=== PATIENT | male | born 1960 | race Caucasian/White ===

== ENCOUNTER 2018-09-17 16:07 | Inpatient (IN) ==
--- NOTE | 2018-09-17 16:18 | Emergency Department Note ---
Disposition Clinical Impression: TIA (transient ischemic attack), Dysarthria Disposition: Admitted As Inpatient Condition: Undetermined Time of Disposition: 17:39 Neuro HPI - General Chief Complaint: ED Neuro Symptoms/Deficit Stated Complaint: neuro symptoms Time Seen by Provider: 09/17/18 16:13 Source: patient, family, EMS Mode of arrival: EMS Limitations: no limitations Nursing Notes Reviewed: Yes Vital Signs Reviewed: Yes - History of Present Illness HPI Narrative: 58 yo male with PMHx of subdural hematoma requiring cranial barbels presents to the emergency department with acute onset slurring of his speech and difficulty with word finding. Patient was here today and had an MRI and then went to lunch with his mother. Approximately 30 minutes prior to arrival he notes that he was having problems finding some words and had more slurred speech than normal. His mother also noted that he has had increased difficulty in walking today. Patient has a history of atrial fibrillation but is not on Coumadin any longer because of the history of the subdural hematomas. He has not fallen and hit his head recently. He was complaining of not feeling well this morning according to his mother. - Related Data Home Medications: Home Medications Medication Instructions Recorded Confirmed Aspirin 325 mg PO DAILY 09/17/18 09/17/18 Atorvastatin [Lipitor] 80 mg PO HS 09/17/18 09/17/18 Carvedilol [Coreg] 12.5 mg PO BIDWM 09/17/18 09/17/18 Cholecalciferol (D-3) [Vitamin D] 1,000 unit PO DAILY 09/17/18 09/17/18 Cyanocobalamin (Vitamin B-12) 1,000 mcg SL DAILY 09/17/18 09/17/18 [Vitamin B-12] Dulaglutide [Trulicity] 1.5 mg SQ FR 09/17/18 09/17/18 Glimepiride [Amaryl] 4 mg PO QAM 09/17/18 09/17/18 Insulin Glargine,Hum.rec.anlog 30 unit SQ HS 09/17/18 09/17/18 [Basaglar Kwikpen U-100] Losartan [Cozaar] 100 mg PO DAILY 09/17/18 09/17/18 Magnesium Oxide [Magnesium] 400 mg PO DAILY 09/17/18 09/17/18 Metformin HCl 1,700 mg PO QAM 09/17/18 09/17/18 Metformin HCl 850 mg PO QPM 09/17/18 09/17/18 Omeprazole [PriLOSEC] 20 mg PO DAILY 09/17/18 09/17/18 Sertraline [Zoloft] 200 mg PO DAILY 09/17/18 09/17/18 amLODIPine [Norvasc] 10 mg PO DAILY 09/17/18 09/17/18 Allergies/Adverse Reactions: Allergies Allergy/AdvReac Type Severity Reaction Status Date / Time lisinopril AdvReac Cough Verified 09/17/18 16:20 All systems ED: reviewed and negative except as stated. Review of Systems: As Per HPI Constitutional: Denies: fever, chills, weakness Eyes: Denies: vision change Cardiovascular: Denies: chest pain, palpitations, dyspnea on exertion Respiratory: Denies: cough, dyspnea, wheezes Gastrointestinal: Denies: abdominal pain, nausea, vomiting Musculoskeletal: Denies: back pain Integumentary: Denies: rash Neurological: Denies: headache Past Medical History - Past Medical History Attestation: Yes The following information was validated with the patient. Source: patient Medical history: Reports: CVA Physical Exam - General Limitations: no limitations General appearance: alert, in no apparent distress - Head Head exam: atraumatic, normocephalic, other (Left-sided facial droop which is chronic for him) - Eye Eye exam: Present: PERRL, other (Patient cannot move his eyes to the left or the right, this is chronic for him) - ENT ENT exam: normal exam, normal oropharynx - Neck Neck exam: Present: normal inspection. Absent: tenderness, lymphadenopathy - Chest Chest inspection: Present: normal inspection. Absent: tenderness, rash - Respiratory Respiratory exam: Present: normal lung sounds bilaterally. Absent: wheezes - Cardiovascular Cardiovascular exam: Present: regular rate, normal rhythm - Abdominal Exam Abdominal exam: Present: soft, Non-Tender. Absent: distention, guarding, rebound, rigidity - Extremities Exam Extremities exam: Present: other (Patient missing left hand). Absent: tenderness, pedal edema - Neurological Exam Neurological exam: Present: alert, oriented X3, other (For more detailed neurologic exam please refer to the NIH section) - Psychiatric Psychiatric exam: Present: normal affect, normal mood - Skin Skin exam: Present: warm, dry, intact Course Vital Signs Temperature 98.4 F 09/17/18 16:08 Pulse Rate 67 09/17/18 16:08 Respiratory Rate 14 09/17/18 16:08 Blood Pressure 145/109 09/17/18 16:08 O2 Sat by Pulse Oximetry 99 09/17/18 16:08 Temperature 98.4 F 09/17/18 16:08 Pulse Rate 68 09/17/18 16:38 Respiratory Rate 20 09/17/18 16:38 Blood Pressure 130/67 09/17/18 16:38 O2 Sat by Pulse Oximetry 99 09/17/18 16:38 Oxygen Delivery Oxygen Delivery Room Air Neuro Symptoms/Deficit - MDM Narrative Medical decision making narrative: Patient presents with difficulty speaking and decreased sensation on his right lower extremity. He does have some chronic deficits that have not changed but NIH drinking currently is 7. Stroke alert was called at approximately 1610, 30 minutes after his last known well. Patient does take a daily full-strength aspirin and started taking this today therefore he will not be given one now. 1625 - Spoke with Dr. Paul , radiologist who states the head CT is negative. 1650 - Spoke with [place] [facility] who do not recommend TPA at this time. Patient's symptoms are improving he has normal sensation of his right arm and leg at this time and his speech has moderately improved but he is still having some mild dysarthria. They state the patient likely needs to be placed on a blood thinner for his afib and be admitted for further stroke workup. Pt is agreeable with this plan of care at this time. 1735 - patient has been accepted to the hospital service at this time - Medical Records Medical records reviewed: Yes I reviewed the patient's medical records. - Lab Data Lab results reviewed: Yes I reviewed the patient's lab results. Result diagrams: 09/17/18 16:09 09/17/18 16:09 Lab Results 09/17/18 09/17/18 09/17/18 Range/Units 16:09 16:09 16:09 WBC 10.8 (4.3-11.1) K/mcL RBC 5.02 (4.19-5.50) M/mcL Hgb 13.0 (12.9-16.9) g/dL Hct 40.9 (37.5-50.1) % MCV 81.5 L (83.0-100.0) fL MCH 25.9 L (28.0-33.3) pg MCHC 31.8 (31.6-35.5) g/dL RDW 14.6 H (11.5-14.5) % Plt Count 312 (140-400) K/mcL MPV 9.6 (9.4-12.4) fL PT 12.2 H (9.4-12.1) Seconds INR 1.1 APTT 30.2 (26.0-36.0) Seconds Sodium 141 (136-145) mEq/L Potassium 4.0 (3.5-5.1) mEq/L Chloride 106 (98-107) mEq/L Carbon Dioxide 26 (23-29) mEq/L BUN 20 (8-23) mg/dL Creatinine 0.88 (0.70-1.30) mg/dL Est GFR ( Amer) > 60 (> 60) Est GFR (Non-Af Amer) > 60 (> 60) BUN/Creatinine Ratio 23 (6-26) Glucose 115 H (70-105) mg/dL Calculated Osmolality 296 (280-300) Calcium 9.2 (8.6-10.3) mg/dL Troponin I < 0.03 (< 0.04) ng/mL - Radiology Data Radiology results reviewed: Yes I reviewed the patient's radiology results. - EKG Data EKG attestation: Yes I reviewed and interpreted this EKG. EKG results narrative: EKG obtained at 16:33 on 09/17/2018 Heart rate 65 bpm, QR restriction with her, QT 433, QTC 451 History of fibrillation with [address]. No ST segment elevations or depressions. No other T-wave abnormalities. No old EKG for comparison at this time. NIH Stroke Scale - Level of Consciousness LOC: Alert - LOC Questions LOC Questions: Answers both correctly - LOC Commands LOC Commands: Performs both correctly - Best Gaze Best Gaze: Partial gaze palsy - Visual Visual: No visual loss - Facial Palsy Facial Palsy: Complete absence of movement in upper and lower face - Motor Arms Motor Arm-Left: No drift for 10 seconds Motor Arm-Right: No drift for 10 seconds - Motor Legs Motor Leg-Left: No drift for 5 seconds Motor Leg-Right: No drift for 5 seconds - Limb Ataxia Limb Ataxia: Normal, No Ataxia - Sensory Sensory: Mild to moderate loss, "not as sharp" - Best Language Best Language: Mild to moderate aphasia. Examiner can identify picture from response - Dysarthria Dysarthria: Mild, slurs some words - Extinction and Inattention Extinction and Inattention: Normal - NIHSS Total Score NIHSS Total Score: 7 TPA Checklist - LKW: 3-4.5 hrs Add. Warnings/Precautions Patient/family understanding: The patient/family members have been counseled and understood the risk, benefit, and alternatives of treatment. Attestation Statement - Attestation Attestation: I have seen this patient with the resident physician, I have personally evaluated this patient. I had reviewed the chart and document dictation by the resident physician and aM in agreement with the information documented by the re sident physician. Please see documentation by the resident physician for complete chart including past medical history, family medical history, review of systems, current history and physical and laboratory and imaging studies. I was present for all procedures, provided direct supervision for all procedures, was present for the entirety of all procedures and provided direct guidance during the procedures. Please see documentation by the resident physician for any procedures performed. I have reviewed all interpretations of EKGs, and reviewed all EKGs performed on patient's as well. I have also reviewed reports of imaging as provided by radiology. Patient presented emergency room with chief complaint of sudden onset 20 minutes ago of speech problems, and a little bit of right sided weakness he has chronic issues related to prior intracranial hemorrhage, prior strokes, and fact had an MRI of his brain this morning, this started however 20 minutes prior to arrival and is different than previous he states he has had a little bit of word finding difficulty and slurring of his speech. 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 Denies any syncope headache denies chest pain shortness of breath. Head CT is interpreted by radiology showed no acute abnormality. Reviewed the MRI from this morning which showed no acute findings. EKG was A. fib rate controlled, no change from prior EKG no evidence of acute ischemic dysrhythmia or hyperkalemia as interpreted by myself apart from stable A. fib. Basic laboratory studies were all within acceptable limits. Based upon onset of symptoms and clinical exam findings of some speech difficult y, with a little bit of sensory deficit of the right leg compared to the left, with a subjective difference in sensation, but with no acute motor findings, chronic left sided facial droop noted, stroke alert was initiated, evaluated by the stroke team via teleconference, do not feel patient is a TPA candidate by stroke team recommendations, recommended admission to this facility for further evaluation and management. Total critical care time as provided by myself excluding any procedures perfor med was 30 minutes in evaluation and management of acute strokelike symptoms.
[2018-09-17 16:21] LABS: Hematocrit 40.9 % (37.5-50.1); Mean Corpuscular HGB Conc 31.8 g/dL (31.6-35.5); Mean Corpuscular Hemoglobin 25.9 pg (28.0-33.3); Mean Corpuscular Volume 81.5 fL (83.0-100.0); Mean Platelet Volume 9.6 fL (9.4-12.4); Platelet Count 312 K/mcL (140-400); Red Blood Count 5.02 M/mcL (4.19-5.50); Red Cell Distribution Width 14.6 % (11.5-14.5); White Blood Count 10.8 K/mcL (4.3-11.1)
[2018-09-17 16:31] LABS: INR 1.1; Prothrombin Time 12.2 Seconds (9.4-12.1)
[2018-09-17 16:33] LABS: Activated Partial Thrombo Time 30.2 Seconds (26.0-36.0)
[2018-09-17 16:45] LABS: BUN/Creatinine Ratio 23 (6-26); Blood Urea Nitrogen 20 mg/dL (8-23); Calcium 9.2 mg/dL (8.6-10.3); Carbon Dioxide 26 mEq/L (23-29); Chloride 106 mEq/L (98-107); Glucose 115 mg/dL (70-105); Osmolality,Calculated 296 (280-300); Sodium 141 mEq/L (136-145); Troponin I < 0.03 ng/mL (< 0.04); eGFR For African Americans > 60 (> 60); eGFR For Non-African Americans > 60 (> 60)
[2018-09-17] MEDS ORDERED: Naloxone 0.4 MG/ML INJ IVP PRN (17:54)
[2018-09-17] MEDS ORDERED: D5% in Water 1,000 ML IVC PRN (17:57)
[2018-09-17] MEDS ORDERED: Dextrose Gel 15 GM/37.5 ML TUBE PO PRN ×2 (17:57)
[2018-09-17] MEDS ORDERED: *HR* Dextrose 50 % in Water (Syg) 50 ML SYRINGE IVP PRN (17:57)
[2018-09-17 18:11] LABS: Estimated Average Glucose 126 mg/dl
--- NOTE | 2018-09-17 18:19 | Internal Med History&Physical ---
Date of Encounter: 09/17/18 Time of Encounter: 18:00 Internal Medicine - H&P: HPI Chief complaint: Slurred speech and right sided weakness this am History of present illness: Mr. Kirkpatrick is a 58 year old male with a pmh of hypertension, dyslipidemia, subdural hematoma about a year ago presenting with complaints of right sided weakness and slurred speech today. Patient says he was sent to the hospital by neurology today to have an MRI done to assess for possible bleeding/ intracranial pathology s/p subdural hematoma about a year ago for which he had stopped taking coumadin for his afib. He says he was visiting at his mom's place after the MRI was done, and he began to have slurred speech and right sided weakness while having lunch with her. He also complained of right hand and right leg numbness. He denies any other acute symptoms such as a new facial droop or chest pain or shortness of breath. Does however have a left sided facial from . In the ER, he had a head CT done showing an age indeterminate occipital lobe infarct, MRI from earlier today showed no acute stroke. He was seen by [facility] and determined not to be a candidate for TPA. He is being admitted for further management Past Med Surg Social Fam HX - Past Medical History Medical history: CVA Additional medical history: bladder CA, retinopathy Psychiatric history: no psych history - Past Surgical History Additional surgical history: bladder CA sx, eye sx - Social History Smoking Status: Current every day smoker Smokeless Tobacco Status: No Alcohol use: none Drug use: none Internal Medicine - H&P: Meds Aspirin 325 mg PO DAILY 09/17/18 [History] Atorvastatin [Lipitor] 80 mg PO HS 09/17/18 [History] Carvedilol [Coreg] 12.5 mg PO BIDWM 09/17/18 [History] Cholecalciferol (D-3) [Vitamin D] 1,000 unit PO DAILY 09/17/18 [History] Cyanocobalamin (Vitamin B-12) [Vitamin B-12] 1,000 mcg SL DAILY 09/17/18 [History] Dulaglutide [Trulicity] 1.5 mg SQ FR 09/17/18 [History] Glimepiride [Amaryl] 4 mg PO QAM 09/17/18 [History] Insulin Glargine,Hum.rec.anlog [Kashifaglyomi Andrade U-100] 30 unit SQ HS 09/17/18 [History] Losartan [Cozaar] 100 mg PO DAILY 09/17/18 [History] Magnesium Oxide [Magnesium] 400 mg PO DAILY 09/17/18 [History] Metformin HCl 1,700 mg PO QAM 09/17/18 [History] Metformin HCl 850 mg PO QPM 09/17/18 [History] Omeprazole [PriLOSEC] 20 mg PO DAILY 09/17/18 [History] Sertraline [Zoloft] 200 mg PO DAILY 09/17/18 [History] amLODIPine [Norvasc] 10 mg PO DAILY 09/17/18 [History] Allergy/AdvReac Type Severity Reaction Status Date / Time lisinopril AdvReac Cough Verified 09/17/18 16:20 All Systems PM: A 10-system review of systems was performed and is negative for pertinent findings except as documented above in the HPI. - Constitutional Constitutional: no chills, no fever(s), no night sweats - EENT Eyes: no change in vision, no discharge, no pain, no photophobia Ears: no ear discharge, no ear pain, no tinnitus Nose, mouth and throat: no dysphagia, no nasal discharge, no neck pain, no sore throat - Cardiovascular Cardiovascular ROS IM: no chest pain, no diaphoresis, no dyspnea, no lightheadedness, no palpitations, no syncope - Respiratory Respiratory: no cough, no dyspnea, no wheezing, no excessive phlegm production - Gastrointestinal Gastrointestinal: no abdominal pain, no diarrhea, no hematemesis, no hematochezia, no melena, no nausea, no vomiting - Musculoskeletal Musculoskeletal ROS IM: no numbness, no tingling - Integumentary Integumentary IM: no rash, no unusual bruising - Neurological Neurological ROS: focal weakness, numbness, no confusion, no convulsions, no tingling, no tremor(s) - Hematologic/Lymphatic Hematologic/Lymphatic: no easy bruising - Constitutional Vitals: Temp Pulse Resp BP Pulse Ox 98.4 F 67 18 136/64 98 09/17/18 16:08 09/17/18 17:50 09/17/18 17:50 09/17/18 17:50 09/17/18 17:50 Exam: has amblyopia - Head Head exam: Present: atraumatic, normocephalic - Eye Eye exam: Present: PERRL, conjuntiva pink, sclera anicteric Pupils: Present: PERRL - Neck Neck exam general surgery: Present: supple, trachea midline. Absent: lympha denopathy - Respiratory Respiratory exam: Present: CTAB. Absent: accessory muscle use, rales, rhonchi, wheezes - Cardiovascular Cardiovascular exam: Present: RRR, +S1, +S2. Absent: diastolic murmur, gallop, rubs, systolic murmur - GI/Abdominal GI/Abdominal exam: Present: normal bowel sounds, soft, no peritoneal signs. Absent: distended, tenderness - Extremities Exam Extremities exam: Present: warm, radial pulses palpable and symmetrical. Absent: calf tenderness, cyanotic, pedal edema - Neurological Exam Neurological exam: Present: CN II-XII intact, oriented X3, no focal deficits. Absent: pronater drift, facial droop, speech deficit - Skin Skin exam: Present: dry, intact Internal Med - H&P Results - Labs CBC & Chem 7: 09/17/18 16:09 09/17/18 16:09 Labs: Short CBC 09/17/18 Range/Units 16:09 WBC 10.8 (4.3-11.1) K/mcL Hgb 13.0 (12.9-16.9) g/dL Hct 40.9 (37.5-50.1) % Plt Count 312 (140-400) K/mcL BMP 09/17/18 16:09 Sodium 141 Potassium 4.0 Chloride 106 Carbon Dioxide 26 BUN 20 Creatinine 0.88 Glucose 115 H Calcium 9.2 Cardiac Enzymes 09/17/18 Range/Units 16:09 Troponin I < 0.03 (< 0.04) ng/mL - Impressions ITS Impressions Head CT 09/17/18 16:13 IMPRESSION: 1. Age-indeterminate infarct within the left occipital lobe; correlate with MRI of the head. Critical results were called by Dr. Carlitos Aldrich MD to Liana Rojas on 09/17/2018 at 16:27. D/ / Carlitos Aldrich MD / Carlitos Aldrich MD Interpreting Provider: Carlitos Aldrich MD - Assessment and Plan (1) TIA (transient ischemic attack) Current Visit: Yes Status: Acute Assessment and plan: Pt comes in with right sided weakness and dysarthria. [facility] contacted and patient not deemed to be a candidate for TPA MRI head from outpatient appointment and CT head in ER showed no acute CVA Cotninue aspirin. Consider adding anticoagulation for afib such as eliquis once neuro clears him based on subdural hematoma a year ago Obtain echo and carotid duplex (2) Atrial fibrillation Current Visit: Yes Status: Acute Assessment and plan: Rate controlled on coreg. Stopped anticoagulation a year ago 2 to subdural hematoma Resume anticoagulation once cleared by neuro Qualifiers: Qualified Code(s): I48.91 - Unspecified atrial fibrillation (3) Hypertension Current Visit: Yes Status: Acute Assessment and plan: Continue amlodipine and losartan Qualifiers: Qualified Code(s): I10 - Essential (primary) hypertension (4) Diabetes mellitus Current Visit: Yes Status: Acute Assessment and plan: Continue insulin and monitor fingersticks Qualifiers: Qualified Code(s): E11.9 - Type 2 diabetes mellitus without complications (5) Subdural hematoma Current Visit: Yes Status: Acute Assessment and plan: Had subdural hematoma a year ago. HAd outpatient MRI by neuro today showing no acute infarct/bleed (6) DVT prophylaxis Current Visit: Yes Status: Acute Assessment and plan: heparin sc - Time Spent With Patient Total time spent is greater than 50% in coordination of care (as documented) at patient's floor/unit and/or counseling patient:
[2018-09-17] MEDS ORDERED: Insulin DETEMIR 100 UNIT/ML X5UNITS SQ SCH (21:00)
[2018-09-17] MEDS: *HR* Heparin 5,000 UNIT/ML VIAL SQ SCH (21:40)
[2018-09-18 04:43] LABS: Basophils % 0.5 %; Eosinophils # 0.2 K/mcL (0.0-0.6); Eosinophils % 2.6 %; Hematocrit 38.4 % (37.5-50.1); Hemoglobin 12.2 g/dL (12.9-16.9); Immature Granulocytes % 0.1 % (0-4); Lymphocytes # 2.9 K/mcL (0.6-4.6); Lymphocytes % 33.1 %; Mean Corpuscular HGB Conc 31.8 g/dL (31.6-35.5); Mean Corpuscular Hemoglobin 26.7 pg (28.0-33.3); Monocytes # 0.9 K/mcL (0.0-1.3); Monocytes % 10.5 %; Neutrophils # 4.7 K/mcL (1.6-8.9); Platelet Count 285 K/mcL (140-400); Red Blood Count 4.57 M/mcL (4.19-5.50); Red Cell Distribution Width 14.6 % (11.5-14.5); Segmented Neutrophils % 53.2 %; White Blood Count 8.8 K/mcL (4.3-11.1)
[2018-09-18 05:05] LABS: BUN/Creatinine Ratio 24 (6-26); Blood Urea Nitrogen 19 mg/dL (8-23); Calcium 9.1 mg/dL (8.6-10.3); Carbon Dioxide 27 mEq/L (23-29); Chloride 107 mEq/L (98-107); Glucose 111 mg/dL (70-105); Magnesium 1.8 mg/dL (1.6-2.6); Osmolality,Calculated 301 (280-300); Phosphorous 4.2 mg/dL (2.7-4.5); Potassium 3.5 mEq/L (3.5-5.1); Sodium 144 mEq/L (136-145); eGFR For African Americans > 60 (> 60); eGFR For Non-African Americans > 60 (> 60)
[2018-09-18] MEDS: *HR* Heparin 5,000 UNIT/ML VIAL SQ SCH (05:53)
[2018-09-18] MEDS ORDERED: Cholecalciferol (D-3) 1,000 UNIT TABLET PO SCH (09:00)
[2018-09-18] MEDS ORDERED: Cyanocobalamin (B-12) 1,000 MCG TABLET PO SCH (09:00)
[2018-09-18] MEDS ORDERED: amLODIPine 5 MG TABLET PO SCH (09:00)
[2018-09-18] MEDS ORDERED: Magnesium Oxide 400 MG TABLET PO SCH (09:00)
[2018-09-18] MEDS ORDERED: Aspirin 325 MG TABLET PO SCH (09:00)
[2018-09-18] MEDS: Insulin LISPRO 300 UNITS/3 ML VIAL SQ SCH ×2 (09:10→12:08)
--- NOTE | 2018-09-18 09:23 | Neurology - Consult Note ---
<Tila Watson I - Last Filed: 09/18/18 13:28> Date of Encounter: 09/18/18 Assessment and Plan (1) TIA (transient ischemic attack) Current Visit: Yes Status: Acute I have personally performed a face to face diagnostic evaluation, including H PI, EXAM, which is included in the Assesment and plan, which was discussed with Andreas Suarez CNP, I agree with the above outlined documentation. This patient who has an history of flow atrial fibrillation, as well as subdural hematoma in the past without any evidence of bleed on his recent CT scan as well as MRI of the brain has this event which could be a TIA And in the context of atrial fibrillation recommend anticoagulation. As no evidence of any bleed at this time he could be started on anticoagulation CT scan has been negative for any acute bleed carotid duplex did not reveal any critical stenosis. Awaits echocardiogram results Beside that do not think that he would require any rehabilitation due to the factsignificant focal neurological deficit on exam Other treatment is as per primary team Tila Watson MD. NeurologyI (2) Atrial fibrillation Current Visit: Yes Status: Acute Qualifiers: Qualified Code(s): I48.91 - Unspecified atrial fibrillation (3) Subdural hematoma Current Visit: Yes Status: Acute History of Present Illness HPI: Mr. Kirkpatrick is a 58 year old male Medications and Allergies Aspirin 325 mg PO DAILY 09/17/18 [History] Atorvastatin [Lipitor] 80 mg PO HS 09/17/18 [History] Carvedilol [Coreg] 12.5 mg PO BIDWM 09/17/18 [History] Cholecalciferol (D-3) [Vitamin D] 1,000 unit PO DAILY 09/17/18 [History] Cyanocobalamin (Vitamin B-12) [Vitamin B-12] 1,000 mcg SL DAILY 09/17/18 [History] Dulaglutide [Trulicity] 1.5 mg SQ FR 09/17/18 [History] Glimepiride [Amaryl] 4 mg PO QAM 09/17/18 [History] Insulin Glargine,Hum.rec.anlog [Basaglar Kwikpen U-100] 30 unit SQ HS 09/17/18 [History] Losartan [Cozaar] 100 mg PO DAILY 09/17/18 [History] Magnesium Oxide [Magnesium] 400 mg PO DAILY 09/17/18 [History] Metformin HCl 1,700 mg PO QAM 09/17/18 [History] Metformin HCl 850 mg PO QPM 09/17/18 [History] Omeprazole [PriLOSEC] 20 mg PO DAILY 09/17/18 [History] Sertraline [Zoloft] 200 mg PO DAILY 09/17/18 [History] amLODIPine [Norvasc] 10 mg PO DAILY 09/17/18 [History] Allergy/AdvReac Type Severity Reaction Status Date / Time lisinopril AdvReac Cough Verified 09/17/18 16:20 All Systems: The remainder of the systems were reviewed and are negative Physical Examination - Vital Signs Vital Signs: Initial Vital Signs Temp Pulse Resp BP Pulse Ox 98.4 F 67 14 145/109 99 09/17/18 16:08 09/17/18 16:08 09/17/18 16:08 09/17/18 16:08 09/17/18 16:08 Results - Laboratory Findings CBC and BMP: 09/18/18 03:20 09/18/18 03:20 Abnormal lab findings: Abnormal lab results Hgb 12.2 g/dL (12.9-16.9) L 09/18/18 03:20 MCV 81.5 fL (83.0-100.0) L 09/17/18 16:09 MCH 26.7 pg (28.0-33.3) L 09/18/18 03:20 RDW 14.6 % (11.5-14.5) H 09/18/18 03:20 PT 12.2 Seconds (9.4-12.1) H 09/17/18 16:09 Glucose 111 mg/dL (70-105) H 09/18/18 03:20 POC Glucose 183 mg/dL (70-99) H 09/17/18 23:23 6.0 % (-5.6) H 09/17/18 14:26 301 (280-300) H 09/18/18 03:20 Consult Discharge Plan - Plan Instructions: Atrial Fibrillation (DC) Referrals: Francisco Licea MD [Primary Care Provider] - (In 1 week) Paco Murrell DO [Partnered Physician] - (In 1-2 weeks) <Andreas Suarez - Last Filed: 09/18/18 14:32> Date of Encounter: 09/18/18 Time of Encounter: 09:18 Assessment and Plan (1) TIA (transient ischemic attack) Current Visit: Yes Status: Acute Neurology consult with concerns for strokelike symptoms Sx are complicated by h/o a-fib not on anticoagulation d/t traumatic subdural hematoma development on Coumadin. Patient states "I hit my head and developed a brain bleed requiring surgery". He presented yesterday with dysarthria and difficulty with word finding He had an unremarkable MRI of the brain prior to these events; MR brain only showing chronic left occipital lobe infarct A CT of the head was completed showing an age-indeterminate left occipital lobe infarct Risk factors include A-fib without anticoagulation, obesity, smoking history, age, previous CVA, HTN, HLD and TM Given symptoms and risk factors a stroke workup was implemented Echocardiogram pending Carotid duplex scans show b/l distal ICA with 40-59% stenosis - Neurology c/s to evaluate whether or not it is safe to restart Coumadin e specially in the setting of recurrent TIAs All of his sx have resolved as of this morning. There are no neurological deficits on exam. It is likely that the age indeterminant left occipital lobe infarct identified on the CT with MRI correlation is chronic from his first CVA. However, we do not have his medical records here at [facility]. As such we will sequester his records at this time for further evaluation. In regards to his sx at presentation he most likely experienced a TIA. PLAN: Recommend restarting Coumadin, especially with recurrent TIA's If TTE is normal he is okay to d/c from neuro perspective (2) Atrial fibrillation Current Visit: Yes Status: Acute per hx currently not on coumadin 2/2 subdural hematoma after hitting his head one year ago Neurology consult to determine whether or not it is safe to restart oral anticoagulation Qualifiers: Qualified Code(s): I48.91 - Unspecified atrial fibrillation (3) Subdural hematoma Current Visit: Yes Status: Acute per hx History of Present Illness Chief complaint: Slurred speech and difficulty with word finding HPI: Mr. Kirkpatrick is a 58 year old male with a history of A. fib currently not on Couma din due to subdural hematoma 1 year ago, CVA, HTN, HLD and DM. Neurology has been consulted for evaluation of neuro symptoms. The patient reports that he completed an MRI yesterday to assess for the possibility of bleeding or intracranial pathology S/P subdural hematoma 1 year ago. He reports that he hit his head one year ago and subsequently developed a subdural hematoma while on Coumadin. He was recently seen in the neurology office for consultation in regards as to whether or not to restart his Coumadin. 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 Yesterday after completing the MRI he was having lunch with his mother and reported a sudden onset of slurred speech and difficulty with word finding prompting evaluation in the ED. He denies any unilateral weakness, headaches, dizziness, headache or neck pain. Again, an MRI of the brain was completed prior to these events which showed no acute stroke. However, his symptoms did occur after the MRI prompting neurology evaluation with concerns for CVA vs recurrent TIA's. By the time of my assessment this morning symptoms have completely resolved and there are no acute neurological deficits. He underwent a CT of the head which revealed an age-indeterminate infarct within the left occipital lobe. Past Med Surg Social Fam HX - Past Medical History Medical history: CVA Additional medical history: bladder CA, retinopathy Psychiatric history: no psych history - Past Surgical History Additional surgical history: bladder CA sx, eye sx - Social History Smoking Status: Current every day smoker Smokeless Tobacco Status: No Alcohol use: none Drug use: none - Family History Mother Living Status: Still Living Hx Family Cardiac Disorders: No Hx Family Respiratory Disorders: No Hx Family Cancer: No Hx Family Genitourinary Disorders: No Hx Family Endocrine Disorder: Yes (dm) Hx Family Musculoskeletal Disorders: No Hx Family Neuromuscular Disorders: No Hx Family Neurologic Disorders: No Hx Family HEENT Disorders: No Hx Family Autoimmune Disorders: No Hx Family Reproductive Disorders: No Hx Family Psychosocial Disorders: No Hx Family Medical Disorders: No Father Living Status: Hx Family Cardiac Disorders: Yes (mi, chf, angina) Hx Family Cancer: No Hx Family GI Disorders: No Hx Family Genitourinary Disorders: No Hx Family Endocrine Disorder: Yes (dm) Hx Family Musculoskeletal Disorders: No Hx Family Neuromuscular Disorders: No Hx Family Neurologic Disorders: No Hx Family HEENT Disorders: No Hx Family Autoimmune Disorders: No Hx Family Reproductive Disorders: No Hx Family Psychosocial Disorders: No Hx Family Medical Disorders: No All Systems: The remainder of the systems were reviewed and are negative Review of Systems: REVIEW OF SYSTEMS GENERAL: Negative for any nausea, vomiting, fevers, chills NEUROLOGIC: Negative for any dysphagia, hemiparesis, hemisensory deficits, vertigo, ataxia, seizures, paralysis, tingling, numbness, unilateral weakness or numbness/tingling Positive-dysarthria reporting slurred speech at admission as well as difficulty with word finding. 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 HEENT: Negative for any head trauma, neck trauma CARDIAC: Negative for any chest pain, dyspnea, peripheral edema or palpitations MUSCULOSKELETAL: Negative-loss of strength Physical Examination - Vital Signs Vital Signs: Initial Vital Signs Temp Pulse Resp BP Pulse Ox 98.4 F 67 14 145/109 99 09/17/18 16:08 09/17/18 16:08 09/17/18 16:08 09/17/18 16:08 09/17/18 16:08 - Exam Exam: Examination: General Examination: *CONSTITUTIONAL: Alert and oriented X 3, no acute distress *GENERAL APPEARANCE OF PATIENT appears healthy and well groomed *EYES: pupils equal, round, reactive to light and accommodation, conjunctiva clear without masses or ulcerations, fundi normal. *CARDIOVASCULAR no peripheral edema, distal temperature normal, dorsalis pedis pulses normal. 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 However, left bicep, tricep strength is 5/5 motor strength scale, right deltoid, bicep, tricep, shipping clerk/admin strength is 5/5, bilateral hip flexors ,anterior tibialis, dorsoflexion of the foot 5/5 *MUSCLE TONE IN THE UPPER AND LOWER EXTREMITIES normal. No abnormal movements, fasciculations or atrophy identified. Neurological: *ORIENTATION to person, situation, time and place *RECURRENT AND REMOTE MEMORY intact *ATTENTION AND CONCENTRATION are normal *LANGUAGE FUNCTION no significant aphasia or dysarthia was noted. *FUND OF KNOWLEDGE aware of current events, past history, vocabulary *MENTAL attention span and concentration normal. *CN II optic fundi were normal, no papilledema noted. *CN III,IV, PERRLA. 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 *CN V shows normal sensation and jaw opens symmetrically. *CN VII congenital left facial palsy *CN VIII shows no significant hearing loss on exam *CN IX,,X palate elevated symmetrically *CN XI normal strength in the sternocleidomastoid muscles, symmetrical shoulder shrugging. *CN XII tongue protruded in the midline, with normal strength and movement. *SENSORY EXAMINATION light touch intact *REFLEXES: deep tendon reflexes were normal and symmetrical , grade 2/4 diffusely, no pathological reflexes were noted. *CEREBELLAR TESTING normal finger to nose, heel/knee/dangelo *PAIN LEVEL 0/10 Results - Laboratory Findings CBC and BMP: 09/18/18 03:20 09/18/18 03:20 Abnormal lab findings: Abnormal lab results Hgb 12.2 g/dL (12.9-16.9) L 09/18/18 03:20 MCV 81.5 fL (83.0-100.0) L 09/17/18 16:09 MCH 26.7 pg (28.0-33.3) L 09/18/18 03:20 RDW 14.6 % (11.5-14.5) H 09/18/18 03:20 PT 12.2 Seconds (9.4-12.1) H 09/17/18 16:09 Glucose 111 mg/dL (70-105) H 09/18/18 03:20 POC Glucose 183 mg/dL (70-99) H 09/17/18 23:23 6.0 % (-5.6) H 09/17/18 14:26 301 (280-300) H 09/18/18 03:20 - Diagnostic Findings Additional findings: CT/CT stroke alert head wo con IMPRESSION: 1. Age-indeterminate infarct within the left occipital lobe; correlate with MRI of the head. MR/MR head/brain wo con IMPRESSION: No acute infarct.
[2018-09-18 11:14] VITALS: BP 150/69
--- NOTE | 2018-09-18 12:47 | Electrocardiograph Report ---
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
--- NOTE | 2018-09-18 13:56 | Discharge Summary ---
- NOTES TO OUTPATIENT PROVIDER Notes to Outpatient Provider: Patient with a history of hypertension, dyslipidemia, subdural hematoma was hospitalized here after he presented to the ER with complaints of right-sided weakness and slurred speech. He had just undergone MRI of the brain to follow up on prior episode of subdural hematoma as a result of which he had stopped taking Coumadin for his atrial fibrillation. As his symptoms resolve soon after, he was suspected of having TIA. Neurology was consulted. Patient underwent carotid Dopplers which showed distal ICA on the right side having 40-59% stenosis. Echocardiogram did not show any PFO. Patient has normal EF. Head CT did not show any bleed. Neurology has evaluated patient and recommended that he be started back on anticoagulation now that his 1 year post his subdural hematoma and has had no recurrent bleed. He will follow up with PCP and neurologist for further management. 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 Kirkpatrick is a 58 year old male Patient with a history of hypertension, dyslipidemia, subdural hematoma was hospitalized here after he presented to the ER with complaints of right-sided weakness and slurred speech. He had just undergone MRI of the brain to follow up on prior episode of subdural hematoma as a result of which he had stopped taking Coumadin for his atrial fibrillation. As his symptoms resolve soon after, he was suspected of having TIA. Neurology was consulted. Patient underwent carotid Dopplers which showed distal ICA on the right side having 40-59% stenosis. Echocardiogram did not show any PFO. Patient has normal EF. Head CT did not show any bleed. Neurology has evaluated patient and recommended that he be started back on anticoagulation now that his 1 year post his subdural hematoma and has had no recurrent bleed. He will follow up with PCP and neurologist for further management. Patient will go back to taking 81 mg of aspirin daily. 325 mg that he is taking currently due to him being back on Coumadin. Discharge discussed with: patient - Time Spent with Patient Total time spent providing and/or coordinating discharge services: Time spent: Less than 30 minutes (25 min) - Discharge Medications Prescriptions: New Warfarin [Coumadin] 5 mg PO 1800 #30 tablet Continued Sertraline [Zoloft] 200 mg PO DAILY Omeprazole [PriLOSEC] 20 mg PO DAILY Metformin HCl 1,700 mg PO QAM Metformin HCl 850 mg PO QPM Losartan [Cozaar] 100 mg PO DAILY Glimepiride [Amaryl] 4 mg PO QAM Carvedilol [Coreg] 12.5 mg PO BIDWM Insulin Glargine,Hum.rec.anlog [Basaglar Kwikpen U-100] 30 unit SQ HS Atorvastatin [Lipitor] 80 mg PO HS amLODIPine [Norvasc] 10 mg PO DAILY Magnesium Oxide [Magnesium] 400 mg PO DAILY Cyanocobalamin (Vitamin B-12) [Vitamin B-12] 1,000 mcg SL DAILY Cholecalciferol (D-3) [Vitamin D] 1,000 unit PO DAILY Aspirin 325 mg PO DAILY Dulaglutide [Trulicity] 1.5 mg SQ FR Home Medications: Aspirin 325 mg PO DAILY 09/17/18 [History] Atorvastatin [Lipitor] 80 mg PO HS 09/17/18 [History] Carvedilol [Coreg] 12.5 mg PO BIDWM 09/17/18 [History] Cholecalciferol (D-3) [Vitamin D] 1,000 unit PO DAILY 09/17/18 [History] Cyanocobalamin (Vitamin B-12) [Vitamin B-12] 1,000 mcg SL DAILY 09/17/18 [H istory] Dulaglutide [Trulicity] 1.5 mg SQ FR 09/17/18 [History] Glimepiride [Amaryl] 4 mg PO QAM 09/17/18 [History] Insulin Glargine,Hum.rec.anlog [Basaglar Kwikpen U-100] 30 unit SQ HS 09/17/18 [History] Losartan [Cozaar] 100 mg PO DAILY 09/17/18 [History] Magnesium Oxide [Magnesium] 400 mg PO DAILY 09/17/18 [History] Metformin HCl 1,700 mg PO QAM 09/17/18 [History] Metformin HCl 850 mg PO QPM 09/17/18 [History] Omeprazole [PriLOSEC] 20 mg PO DAILY 09/17/18 [History] Sertraline [Zoloft] 200 mg PO DAILY 09/17/18 [History] amLODIPine [Norvasc] 10 mg PO DAILY 09/17/18 [History] Warfarin [Coumadin] 5 mg PO 1800 #30 tablet 09/18/18 [Rx] Allergies/Adverse Reactions: Allergy/AdvReac Type Severity Reaction Status Date / Time lisinopril AdvReac Cough Verified 09/17/18 16:20 Date of admission: 09/17/18 19:33 Primary care physician: Francisco Licea MD Consults: 09/17/18 17:58 Consult to Neurology [CONS] Routine Consulting Provider: Neurology [facility] Reason for Consult: TIA r/o acute stroke. Also history of subdural hematoma, query if okay to start anticoagulation for atrial fibrillation Call Completed: No Discharging clinician: Luis A Dixon Anticipated date of discharge: 09/18/18 - Constitutional Vitals: Temp Pulse Resp BP Pulse Ox 98.4 F 66 16 150/69 95 09/18/18 11:13 09/18/18 11:13 09/18/18 11:13 09/18/18 11:13 09/18/18 11:13 General appearance: Present: cooperative, A&O X 3, pleasant, answers questions appropriately Exam: General: Patient is alert, no acute distress, oriented x 3 Respiratory: Good respiratory effort. Normal breath sounds. No wheezing or crackles. Cardiovascular: Regular rate and rhythm. s1 and s2 normal No clicks, rubs, gall ops, or murmurs. No pedal edema Abdomen: Abdomen is soft, nontender. Bowel sounds are present Musculoskeletal: Left upper extremity congenital deformity Skin: warm, dry, intact. Neuro: Alert oriented x 3 normal cranial nerves, no focal deficits - Patient Status Disposition: Home, Self-Care Condition: Good Functional capacity at discharge: independent ambulation Overall status at discharge: patient is progressing back to baseline - Discharge Instructions Instructions: Atrial Fibrillation (DC) Follow Up With: Francisco Licea MD [Primary Care Provider] - (In 1 week) Paco Murrell DO [Partnered Physician] - (In 1-2 weeks) Additional Instructions: Anticoagulation appointment September 20, 2017 at 8:30M. The appointment will be at the [place] location at the [facility] first [facility] on the right. This appointment will take an average of 30 minutes. Please bring your bottle of warfin, medication list, supplements,etc. - Diet and Activity Activity: increase activity as tolerated Diet: diabetic diet, low fat, low cholesterol, low salt diet
[2018-09-18 15:30] LABS: INR 1.1
[2018-09-18] MEDS ORDERED: *HR* Warfarin 5 MG TABLET PO ONE (16:03)
[2018-09-18] MEDS ORDERED: Warfarin perPT PO PRN (18:00)
== END 2018-09-18 16:27 | disposition home or self-care (01) | DRG 69 ==
LOC: EMEROOARM 16:07 → SUATTDRO 19:33 → 3BNU 19:33
PROVIDERS: ADMIT Internal Medicine Nephrology; ATTEND Internal Medicine